=== PATIENT | female | born 1995 | race Two or more races ===

== ENCOUNTER 2021-11-02 09:45 | Inpatient (IN) | payer OTHER ==
[~2021-11-02] VITALS: Ht 147.3 cm; Wt 3.2 kg
[2021-11-07] MEDS ORDERED: PRENATAL CAPLE1 EAC1 PO (16:35)
== END 2021-11-09 20:43 | disposition home or self-care (01) | DRG 788 ==
LOC: LDR 11-07 08:00 → O/R 11-07 10:45 → OB/GYN 11-07 16:14
PROVIDERS: ADMIT Obstetrics & Gynecology; ATTEND Obstetrics & Gynecology
PROC: 4A1HXCZ Monitoring of Products of Conception, Cardiac Rate, External Approach (ICD-10-PCS; 2021-11-07)
PROC: 10D00Z1 Extraction of Products of Conception, Low, Open Approach (ICD-10-PCS; principal; 2021-11-07 14:15)
DX: O34.211 Maternal care for low transverse scar from previous cesarean delivery (principal); Z3A.39 39 weeks gestation of pregnancy; Z37.0 Single live birth; Z20.822 Contact with and (suspected) exposure to COVID-19